=== PATIENT | male | born 1955 | race Caucasian/White ===

== ENCOUNTER 2018-05-22 15:17 | Observation (INO) | payer OTHER ==
[~2018-05-22] VITALS: Ht 172.7 cm; Wt 93.3 kg
[~2018-05-22 15:17] MED LIST: CRESTOR 10MG10 MG PO; FISH OIL CONCEN1 SGL PO; MULTIPLE VITAMI1 TAB PO; THERAPEUTIC MUL1 TAB PO
[2018-05-22 17:10] VITALS: BP 152/88; PULSE 69; TEMP 98.2
[2018-05-22] MEDS ORDERED: ASPIRIN 81M81 MG/TA2 PO (18:58)
[2018-05-22 20:55] LABS: C-REACTIVE PROTEIN 1.3 mg/dL (0.0-0.9); MAGNESIUM 2.3 mg/dL (1.6-2.3)
[2018-05-22 21:23] LABS: THYROID STIMULATING HORMONE 1.89 uIU/mL (0.465-4.680)
[2018-05-22 23:50] LABS: MUCOUS Present /lpf; PH 5 (5-8); SQUAMOUS EPITHELIAL None Seen /hpf; URINE APPEARANCE Clear; URINE BACTERIA None Seen /hpf; URINE BILIRUBIN Negative (NEGATIVE); URINE BLOOD Negative (NEGATIVE); URINE COLOR Yellow; URINE GLUCOSE Negative (NEGATIVE); URINE KETONE Trace (NEGATIVE); URINE LEUKOCYTE ESTERASE Negative (NEGATIVE); URINE NITRATE Negative (NEGATIVE); URINE PROTEIN(semi-quant) Negative (NEGATIVE); URINE RBC 0-2 /hpf; URINE UROBILINOGEN Negative (NEGATIVE)
[2018-05-22 23:59] LABS: COLLECTION METHOD CLEAN CATCH; TRICYCLIC ANTIDEPRESS URINE NEGATIVE
[2018-05-23] VITALS (10 sets, daily range): BP systolic 133–170; BP diastolic 58–93; PULSE 54–85; TEMP 97.7–98.6
[2018-05-23 07:58] LABS: BASO % 0.6 % (0.0-2.0); EOS # 0.2 (0.0-0.7); EOS % 3.3 % (0-4.0); GRAN # 3.9 (1.4-6.5); GRAN % 59.6 % (42.2-75.2); HEMATOCRIT 42.2 % (42.0-52.0); HEMOGLOBIN 14.6 g/dl (13.5-18.0); LYMPH # 1.7 (1.2-3.4); LYMPH % 26.2 % (20.0-51.0); MEAN CELL VOLUME 98 fl (80.0-100.0); MEAN CORPUSCULAR HEMOGLOBIN 34 pg (27.0-31.0); MEAN CORPUSCULAR HGB CONC 35 g/dl (33.0-37.0); MEAN PLATELET VOLUME 9.9 fl (7.4-10.4); MONO # 0.6 (0.1-0.6); MONO % 9.8 % (1.7-9.3); PLATELET COUNT 195 K/mm3 (130-400); RED BLOOD COUNT 4.33 M/mm3 (4.20-5.60); REDCELL DISTRIBUTION WIDTH-CV 12.9 % (11.5-14.5)
[2018-05-23 08:14] LABS: ALBUMIN 3.7 gm/dL (3.5-5.0); BILIRUBIN,TOTAL 0.6 mg/dL (0.0-1.0); CALCIUM 8.7 mg/dL (8.4-10.2); CHOLESTEROL RISK RATIO 3.6; CREATININE, serum 0.79 mg/dL (0.66-1.25); POTASSIUM 3.8 mmol/L (3.4-5.0); TOTAL PROTEIN 6.5 gm/dL (6.4-8.2)
[2018-05-23 14:00] LABS: FOLATE (FOLIC ACID) 14.7 ng/mL (7.0-31.4)
[2018-05-23 14:46] LABS: HOMOCYSTEINE 6.9 umol/L (5.5-16.2)
[2018-05-24 02:22] VITALS: BP 150/68; PULSE 70
[2018-05-24 06:05] VITALS: BP 150/62; PULSE 65; TEMP 97.4
[2018-05-24 08:42] LABS: BASO # 0.1 (0.0-0.2); BASO % 0.5 % (0.0-2.0); EOS # 0.2 (0.0-0.7); EOS % 1.8 % (0-4.0); GRAN # 6.6 (1.4-6.5); GRAN % 71.2 % (42.2-75.2); HEMATOCRIT 45.4 % (42.0-52.0); HEMOGLOBIN 15.5 g/dl (13.5-18.0); LYMPH # 1.6 (1.2-3.4); LYMPH % 17.6 % (20.0-51.0); MEAN CELL VOLUME 98 fl (80.0-100.0); MEAN CORPUSCULAR HEMOGLOBIN 34 pg (27.0-31.0); MEAN CORPUSCULAR HGB CONC 34 g/dl (33.0-37.0); MEAN PLATELET VOLUME 9.5 fl (7.4-10.4); MONO # 0.8 (0.1-0.6); MONO % 8.6 % (1.7-9.3); PLATELET COUNT 228 K/mm3 (130-400); RED BLOOD COUNT 4.63 M/mm3 (4.20-5.60); REDCELL DISTRIBUTION WIDTH-CV 12.8 % (11.5-14.5)
[2018-05-24 08:50] LABS: CALCIUM 9.6 mg/dL (8.4-10.2); CREATININE, serum 0.8 mg/dL (0.66-1.25); POTASSIUM 4.1 mmol/L (3.4-5.0)
[2018-05-24] MEDS ORDERED: PLAVIX 75MG TAB75 MG PO (10:35)
[2018-05-24] MEDS ORDERED: CRESTOR20 MG PO (10:36)
[2018-05-24] MEDS ORDERED: TENORMIN 2525 MG/TAB PO (10:37)
[2018-05-25 01:27] LABS: RPR (VDRL) Non-reactive (())
[2018-05-25 22:58] LABS: ANA SCREEN with REFLEX Positive (Negative)
== END 2018-05-24 12:32 | disposition home or self-care (01) ==
LOC: MEDICAL 15:17
PROVIDERS: Nurse Practitioner Family
DX: I69.392 Facial weakness following cerebral infarction (principal); E78.5 Hyperlipidemia, unspecified; F17.200 Nicotine dependence, unspecified, uncomplicated; I10 Essential (primary) hypertension; I34.0 Nonrheumatic mitral (valve) insufficiency; Z79.82 Long term (current) use of aspirin; Z85.51 Personal history of malignant neoplasm of bladder; Z82.3 Family history of stroke; Z82.49 Family history of ischemic heart disease and other diseases of the circulatory system; Z80.49 Family history of malignant neoplasm of other genital organs; Z80.3 Family history of malignant neoplasm of breast; Z80.0 Family history of malignant neoplasm of digestive organs; Z80.51 Family history of malignant neoplasm of kidney
CPT/HCPCS: 99223-AI; 99239; A9585; G0378; G0379; G8978-GP; G8979-GP; G8987-GO; G8988-GO; G8999-GN; G9186-GN; J1650; J7030